=== PATIENT | female | born 1950 | race Caucasian/White ===

== ENCOUNTER 2017-07-23 15:28 | Emergency (ER) | payer MEDICARE, OTHER ==
[~2017-07-23] VITALS: Ht 162.6 cm; Wt 82.1 kg
[~2017-07-23 15:28] MED LIST: DIGO.125 PO; GLUCTAB PO; LORC10TA PO; NABU500T PO; SULF-154 PO
[2017-07-23 15:35] VITALS: BP 158/74; PULSE 84; RESP 16; TEMP 98.3; O2SAT 97
--- NOTE | 2017-07-23 16:20 | PD ---
HPI Chief Complaint: General Weakness Time Seen by Provider: 16:20 Travel History International Travel<30 days: No Contact w/Intl Traveler<30days: No Traveled to known affect area: No History of Present Illness HPI 67-year-old female came to the emergency room for generalized weakness, shaking of both hands and coughing that has been going on for past 1 week. Patient says that she was initially started on antibiotic which was switched to ciprofloxacin for sinus infection. Patient had an allergic reaction she thinks to the ciprofloxacin with rash over her chest area intense headache and immediate fever the last for 12 hours. Patient has not had any fever in past 2 days. Her antibiotic was switched to Cefdinir. She has taken for 2 days. However now she has been feeling weak and her hand shaking and patient is still coughing. Vital signs were stable in triage. She had never had a chest x-ray done at any point. Patient is not a smoker she said. PFSH Past Medical History Narrative Medical List of her past medical, surgical, social and family history was reviewed from the nursing note. Hx Anticoagulant Therapy: No Heart Rhythm Problems: Yes (SVT) Cardiovascular Problems: Yes (hx of svt) Cerebrovascular Accident: Yes (TIA 1997 AND 2005) Diabetes: Yes Diminished Hearing: No ?: Not Menopausal: Yes Past Surgical History Cardiac Surgery: Yes (1992 HEART ABLATION) Neurologic Surgery: Yes (LAMINECTOMY ) Tonsillectomy: Yes Social History Alcohol Use: No Tobacco Use: No Substance Use: No Allergies-Medications (Allergen,Severity, Reaction): Coded Allergies: ciprofloxacin (Verified Allergy, Severe, rash, 07/23/17) doxycycline (Unverified Allergy, Severe, Shortness of Breath, 07/23/17) epinephrine (Verified Allergy, Severe, Tachycardia, 07/23/17) erythromycin base (Unverified Allergy, Severe, INTERACTS WITH PT'S DIGOXIN , 07/23/17) Comments List of her allergies reviewed from the nursing note. Reported Meds & Prescriptions Reported Meds & Active Scripts Active Reported Nature-Throid (Thyroid) 65 Mg Tab 65 Mg PO DAILY Metformin (Metformin HCl) 500 Mg Tab 500 Mg PO BIDPC Narrative Medication List of her home medications reviewed from the nursing note. Review of Systems Except as stated in HPI: all other systems reviewed are Neg Respiratory: Positive: Cough, Shortness of Breath Physical Exam Narrative GENERAL: Awake, alert, moderate distress, coughs after couple sentences each time which sounds wet. SKIN: Focused skin assessment warm/dry. HEAD: Atraumatic. Normocephalic. EYES: Pupils equal and round. No scleral icterus. No injection or drainage. ENT: No nasal bleeding or discharge. Mucous membranes pink and moist. NECK: Trachea midline. No JVD. CARDIOVASCULAR: Regular rate and rhythm. No murmur appreciated. RESPIRATORY: No accessory muscle use. Fine crackles heard in the left lung base GASTROINTESTINAL: Abdomen soft, non-tender, nondistended. Hepatic and splenic margins not palpable. MUSCULOSKELETAL: No obvious deformities. No clubbing. No cyanosis. No edema. NEUROLOGICAL: Awake and alert. No obvious cranial nerve deficits. Motor grossly within normal limits. Normal speech. PSYCHIATRIC: Appropriate mood and affect; insight and judgment normal. Data Data Last Documented VS Vital Signs Date Time Temp Pulse Resp B/P (MAP) Pulse Ox O2 Delivery O2 Flow Rate FiO2 07/23/17 18:39 80 19 129/66 (87) 98 07/23/17 17:45 Room Air 07/23/17 15:35 98.3 Orders Orders Complete Blood Count With Diff (07/23/17 16:32) Basic Metabolic Panel (Bmp) (07/23/17 16:32) B-Type Natriuretic Peptide (07/23/17 16:32) Troponin I (07/23/17 16:32) Iv Access Insert/Monitor (07/23/17 16:32) Electrocardiogram (07/23/17 16:32) Ecg Monitoring (07/23/17 16:32) Oximetry (07/23/17 16:32) Oxygen Administration (07/23/17 16:32) Chest, Pa & Lat (07/23/17 16:32) Sodium Chloride 0.9% Flush (Ns Flush) (07/23/17 16:45) Ed Discharge Order (07/23/17 18:14) Labs Laboratory Tests Test 07/23/17 16:50 White Blood Count 4.2 TH/MM3 Red Blood Count 5.32 MIL/MM3 Hemoglobin 14.8 GM/DL Hematocrit 44.0 % Mean Corpuscular Volume 82.8 FL Mean Corpuscular Hemoglobin 27.7 PG Mean Corpuscular Hemoglobin Concent 33.5 % Red Cell Distribution Width 13.5 % Platelet Count 211 TH/MM3 Mean Platelet Volume 8.5 FL Neutrophils (%) (Auto) 51.2 % Lymphocytes (%) (Auto) 36.8 % Monocytes (%) (Auto) 8.9 % Eosinophils (%) (Auto) 2.6 % Basophils (%) (Auto) 0.5 % Neutrophils # (Auto) 2.2 TH/MM3 Lymphocytes # (Auto) 1.5 TH/MM3 Monocytes # (Auto) 0.4 TH/MM3 Eosinophils # (Auto) 0.1 TH/MM3 Basophils # (Auto) 0.0 TH/MM3 CBC Comment DIFF FINAL Differential Comment Blood Urea Nitrogen 11 MG/DL Creatinine 0.68 MG/DL Random Glucose 90 MG/DL Calcium Level 8.5 MG/DL Sodium Level 135 MEQ/L Potassium Level 3.7 MEQ/L Chloride Level 100 MEQ/L Carbon Dioxide Level 25.6 MEQ/L Anion Gap 9 MEQ/L Estimat Glomerular Filtration Rate 87 ML/MIN Troponin I LESS THAN 0.02 NG/ML B-Type Natriuretic Peptide 6 PG/ML MDM Medical Decision Making Medical Screen Exam Complete: Yes Emergency Medical Condition: Yes Medical Record Reviewed: Yes Interpretation(s) Twelve-lead EKG was reviewed by me. Normal sinus rhythm, left axis deviation, nonspecific ST-T wave changes. Heart rate of 80 bpm. Differential Diagnosis CHF, pneumonia, Narrative Course 4:47 PM patient is getting a chest x-ray and blood work. She is aware of this plan. 6:13 PM blood test results of back and within acceptable limits. Chest x-ray shows some change in the left lower lobe where I heard the crackles but radiologist's is not calling this an infiltrate. I'm going to discharge her home and have her follow up with her primary care. Procedures EKG Prior to Arrival: No Diagnosis Primary Impression: Pneumonitis Referrals: Primary Care Physician 2 days Additional Instructions: Please return to the ER if the condition worsens or any other new concerns. Otherwise continue taking the antibiotic and follow-up with your primary care in 2 days. Med/Other Pt SpecificInfo: No Change to Meds Disposition: 01 DISCHARGE HOME Condition: Stable Samuel Sotelo MD Jul 23, 2017 16:20
[2017-07-23] MEDS ORDERED: SODIUM CHLORIDE 0.9% FLUSH 10 ML FLUSH IVF PRN (16:45)
[2017-07-23 16:58] LABS: AUTOMATED NEUTROPHIL # 2.2 TH/MM3 (1.8-7.7); BASOPHIL % 0.5 % (0.0-2.0); EOSINOPHIL # 0.1 TH/MM3 (0-0.4); EOSINOPHIL % 2.6 % (0.0-4.0); HEMO FLAGS DIFF FINAL; LYMPH % 36.8 % (9.0-44.0); LYMPHOCYTE # 1.5 TH/MM3 (1.0-4.8); MEAN CELL VOLUME 82.8 FL (80.0-100.0); MEAN CORPUSCULAR HEMOGLOBIN 27.7 PG (27.0-34.0); MEAN CORPUSCULAR HGB CONC 33.5 % (32.0-36.0); MONO % 8.9 % (0.0-8.0); NEUT % 51.2 % (16.0-70.0); PLATELET COUNT 211 TH/MM3 (150-450); RED BLOOD COUNT 5.32 MIL/MM3 (4.00-5.30); RED CELL DISTRIBUTION WIDTH 13.5 % (11.6-17.2); WHITE BLOOD COUNT 4.2 TH/MM3 (4.0-11.0)
[2017-07-23] MEDS ORDERED: METF500T PO (17:01)
[2017-07-23] MEDS ORDERED: NATU65TA PO (17:01)
[2017-07-23 17:08] LABS: CHLORIDE 100 MEQ/L (98-107); POTASSIUM 3.7 MEQ/L (3.5-5.1); SODIUM (NA) 135 MEQ/L (136-145)
[2017-07-23 17:11] LABS: ANION GAP 9 MEQ/L (5-15); BICARBONATE 25.6 MEQ/L (21.0-32.0)
[2017-07-23 17:12] LABS: BLOOD UREA NITROGEN 11 MG/DL (7-18)
[2017-07-23 17:15] LABS: GLOMERULAR FILTRATION RATE 87 ML/MIN (>89)
[2017-07-23 17:45] VITALS: BP 119/69; PULSE 83; RESP 16; O2SAT 99
--- NOTE | 2017-07-23 18:02 | RADRPT ---
EXAM DATE/TIME: 07/23/2017 17:41 [facility] COMPARISON: No previous studies available for comparison. INDICATIONS : Short of breath, cough MEDICAL HISTORY : None. SURGICAL HISTORY : None. ENCOUNTER: Initial ACUITY: 2 weeks PAIN SCORE: 0/10 LOCATION: Bilateral chest FINDINGS: PA and lateral views of the chest demonstrate the lungs to be symmetrically aerated without evidence of mass, infiltrate or effusion. Possible punctate granulomatous calcifications in the left lower lo be. The cardiomediastinal contours are unremarkable. Degenerative spurring of the dorsal spine with a mild dextroscoliosis of the same. CONCLUSION: No acute infiltrate. Vitaliy Brown MD on July 23, 2017 at 17:59 Board Certified Radiologist. This report was verified electronically.
[2017-07-23 18:39] VITALS: BP 129/66
--- NOTE | 2017-07-24 13:04 | EKG ---
Date Performed: 07/23/2017 Time Performed: 18:34:11 PTAGE: 67 years EKG: Sinus rhythm WITH SHORT WI INTERVAL MARKED LEFT AXIS DEVIATION VOLTAGE CRITERIA FOR LVH NONSPECIFIC ST & T-WAVE A BNORMALITY ABNORMAL ECG Compared to PREVIOUS TRACING , axis more leftward and voltage has increased. T-wave changes are new. PREVIOUS TRACIN04/28/2006 11.20 DOCTOR: Delroy Lang Interpretating Date/Time 07/24/2017 13:03:51
== END 2017-07-23 18:41 | disposition home or self-care (01) ==
LOC: PHED 15:28
DX: J18.9 Pneumonia, unspecified organism (principal); R25.1 Tremor, unspecified; R94.31 Abnormal electrocardiogram [ECG] [EKG]; E11.9 Type 2 diabetes mellitus without complications; Z79.84 Long term (current) use of oral hypoglycemic drugs; Z86.79 Personal history of other diseases of the circulatory system
CPT/HCPCS: 71020; 80048; 83880; 84484; 85025; 93005; 99285